=== PATIENT | female | born 1965 | race Caucasian/White ===

== ENCOUNTER 2020-09-15 08:31 | Day surgery (SDC) | payer BC ==
[2020-09-15 09:01] LABS: Absolute Lymphocytes (CBC) 1.7 K/uL (0.7-4.9); Basophils % 0.5 % (0-1.3); Hematocrit 38.5 % (36.0-45.0); Lymphocytes % 24.2 % (15.3-44.8); MPV 7.8 fL (7.6-11.3); RBC Red Blood Cell Count 4.87 M/uL (3.86-4.86)
[2020-09-15 09:03] LABS: BUN Blood Urea Nitrogen 16 mg/dL (7-18); Bicarbonate 28 mmol/L (21-32); Glucose Level 134 mg/dL (74-106); Potassium 4.4 mmol/L (3.5-5.1); Sodium Level 142 mmol/L (136-145)
[2020-09-15] MEDS ORDERED: CEFAZOLIN/SWI 2gm 0 GM/0 ML SYR ONE (09:07)
[2020-09-15] MEDS ORDERED: NA CHLORIDE 0.9% 1,000 ML ONE (09:07)
[2020-09-15] MEDS ORDERED: MINERAL OIL, LITE 10 ML VIAL ONE (09:39)
--- NOTE | 2020-09-15 10:00 | P.HP ---
Date of Service: 09/15/20 PC: This 55-year-old female presents for a split-thickness skin graft from the right thigh to the right anterior whitlock. HPC: This patient, who has cerebral palsy, inadvertently caked the mental foramen of [facility]'s beds. She removed if portion of skin measuring approximately 5 inches long by 3 inches across the base on her right anterior thigh. Was initially sutured however that failed and now she has an open wound in that area. PMH: Insulin-dependent Diabetes SOC: No known allergies, on insulin SYS REVIEW: Otherwise a rather healthy lady, no chronic medical issues apart from her diabetes O/E awake alert stable HEENT: Nonicteric Chest: Air entry equal bilaterally ABD: Negative LOCO: Open wound to the right anterior lower leg. Has clean granulation tissue in its base. DATA: NAD IMPRESSION: This patient has a open is slowly healing wound on the right anterior portion of her thigh. Her initial injury was about a month ago with still minimal nonhealing. [facility] been [facility]. We have got it so we have a good granulation base. At this point would be the prime time to apply a split-thickness skin graft. PLAN: I will take her the operating room for a split-thickness skin graft from the right thigh to the right anterior whitlock. The risks of this procedures have b een discussed. The possibility of bleeding, infection, the fact will now have 2 wounds were explained. She understands and wants to proceed.
[2020-09-15] MEDS ORDERED: CEFAZOLIN/SWI 1gm 1 GM/10 ML SYR ONE (10:02)
--- NOTE | 2020-09-15 11:04 | P.OP ---
Preoperative diagnosis: Wound to the right lower leg Postoperative diagnosis: The same Primary procedure: Split thickness skin graft from the right thigh to right anterior lower leg Secondary procedure: Application of wound VAC Anesthesia: General Estimated blood loss: Less than 10 cc Specimen: None sign Operative Technique: The patient brought the operating room and placed supine on the table. After the induction of adequate general endotracheal anesthesia, the area of the right lower leg was scrubbed with a chlorhexidine solution, then a Betadine solution, and her right lower leg was draped in usual aseptic manner. Attention was turned towards the right thigh. A split-thickness skin graft approximately 18,000 th of an inch was taken from the right upper thigh measuring approximately 2 inches x 3 in a 0.5 inches in size. The donor site was now dressed with a Xeroform gauze. The piece of skin was taken to the back table were was meshed at a ratio 1.5-1. This was then applied to the traumatic wound after ensuring that it was clean and debrided back to good viable granulation tissue. It was secured using interrupted chromic sutures around its edge. I piece of Adaptic was now placed over the graft itself. The wound VAC sponge was placed on top of this and after securing it with the usual transparent dressing, a hole was made it was collected to our dissection. We had a good seal at that time. At this point the needle sponge instrument count were correct. No specimens were sent. And the wound VAC as a drain was in position. She was stable when sent to the recovery room. Complications: None Transferred to: Recovery Room Condition: Good
[2020-09-15] MEDS: HYDROMORPHONE HCL 1 MG/ML INJ ONE ×2 (11:42→11:52)
[2020-09-15] MEDS ORDERED: HYDROMORPHONE HCL 1 MG/ML INJ ONE (12:20)
[2020-09-15 12:35] VITALS: BMI 38.5
--- NOTE | 2020-09-15 12:42 | P.CNS ---
Date of Consult: 09/15/20 Reason for Consult: Diabetes Management Requesting Physician: Marty Blevins Chief Complaint: RLE laceration History of Present Illness: 55yo F, PMH: IDDM2 with neuropathy, Cerebral Palsy, osteoarthritis, underwent RLE skin graft after recent laceration she incurred from her daughter's bedframe. Patient is seen in the PACU, reports feeling well. She denies any recent fever/chills/infection. She is eating lunch without difficulty. She states she took her 60units of insulin this morning. She also takes Farxiga as well. Her glucose this morning at home was 118, and postoperatively is 98. Bloodwork is otherwise unremarkable today. She reports her last HgA1c in July 2020 was 6.5 Allergies No Known Allergies Allergy (Verified 09/15/20 07:44) Home Medications: Dapagliflozin Propanediol [Farxiga] 1 tab PO DAILY 09/01/20 Progesterone, Micronized [Progesterone] 1 cap PO DAILY 09/01/20 Triamterene 25 mg PO DAILY 09/01/20 Insulin Degludec/Liraglutide [Xultophy 100 Unit-3.6 mg/ml] 60 units SQ DAILY 09/15/20 - Past Medical/Surgical History Diabetic: Yes -: Cerebral palsy -: DM -: Osteoarthritis -: Claustrophobia -: Neuropathy -: Hysterectomy -: Right leg reconstruction r/t cerebral palsy -: Right leg stimulator implanted -: Cholecystectomy -: Appendectomy - Social History Smoking Status: Never smoker Alcohol use: No Place of Residence: Home Review of Systems 10-point ROS is otherwise unremarkable Physical Examination Temp Pulse Resp BP Pulse Ox 96.6 F L 92 H 18 136/88 09/15/20 12:18 09/15/20 12:18 09/15/20 12:18 09/15/20 12:18 General: Alert, In no apparent distress, Oriented x3 HEENT: Mucous membr. moist/pink, Sclerae nonicteric Neck: Supple, JVD not distended Respiratory: Clear to auscultation bilaterally, Normal air movement Cardiovascular: No edema, Regular rate/rhythm Gastrointestinal: Soft and benign, Non-distended, No tenderness Musculoskeletal: Other (RLE: wound vac in place) Neurological: Normal speech, Normal affect, Other (diminished sensation mildly on b/l feet) Laboratory Data (last 24 hrs) 09/15/20 08:11: Sodium 142, Potassium 4.4, BUN 16, Creatinine 0.67, Glucose 134 H 09/15/20 08:11: WBC 7.00, Hgb 12.3, Hct 38.5, Plt Count 180 Physician Review Additional Text: Problem List RLE laceration, now s/p skin graft and wound vac placement DM2, insulin dependent with neuropathy Cerebral Palsy Anxiety -patient overall seems to be doing well post-operatively -took her full dose insulin this morning -will continue to monitor closely as patient was NPO this morning and at risk for hypoglycemia -check glucose in ~2hrs -blood glucose have been ok, tolerating lunch at this time -accucheks ACHS, low dose sliding scale insulin -can resume home regimen tomorrow -wound vac/pain control per surgery Time Spent Managing Pts care (In Minutes): 60
[2020-09-15] MEDS ORDERED: NA CHLORIDE 0.9% 1,000 ML IV SCH (13:00)
[2020-09-15] MEDS: Ringers Lactate 1,000 ML IV SCH ×2 (13:21→19:59)
[2020-09-15] MEDS: MORPHINE 4 MG/ML SYR IV PRN ×2 (14:40→19:55)
[2020-09-15] MEDS: INSULIN -REGULAR HUMAN 50 UNIT/0.5 ML ML SQ SCH ×2 (15:41→19:59)
[2020-09-16] MEDS: INSULIN -REGULAR HUMAN 50 UNIT/0.5 ML ML SQ SCH ×3 (07:30→16:27)
[2020-09-16] MEDS: Ringers Lactate 1,000 ML IV SCH ×2 (07:56→17:13)
[2020-09-16 08:20] VITALS: O2SAT 96
[2020-09-16] MEDS: MORPHINE 4 MG/ML SYR IV PRN ×2 (08:46→13:52)
[2020-09-16] MEDS ORDERED: XULTOPHY SQ SCH (09:00)
[2020-09-16 16:26] VITALS: BP 133/68; TEMP 98
--- NOTE | 2020-09-16 17:58 | P.PN ---
Subjective Date of Service: 09/16/20 Chief Complaint: RLE laceration Subjective: Other (doing well, tolerating diet, pain tolerable, no SOB, no chest pain, no n/v/d, passing flatus) Review of Systems 10-point ROS is otherwise unremarkable Physical Examination - Vital Signs Temperature: 98 F Blood Pressure: 133/68 Pulse: 89 Respirations: 18 Pulse Ox (%): 95 Assessment & Plan Physician Review Additional Text: Physical Exam General: Alert, In no apparent distress, Oriented x3 HEENT: Mucous membr. moist/pink, Sclerae nonicteric Neck: Supple, JVD not distended Respiratory: Clear to auscultation bilaterally, Normal air movement Cardiovascular: No edema, Regular rate/rhythm Gastrointestinal: Soft, slightly-distended, No tenderness Musculoskeletal: RLE: wound vac in place, R thigh: dressing intact over skin graft source Neurological: Normal speech, Normal affect, Other (diminished sensation mildly on b/l feet) Problem List RLE laceration, now s/p skin graft and wound vac placement DM2, insulin dependent with neuropathy Cerebral Palsy Anxiety -patient overall seems to be doing well post-operatively -continue home insulin, patient has in room -accucheks ACHS, low dose sliding scale insulin -wound vac/pain control per surgery Dispo: pending wound vac / home health set up Time Spent Managing Pts Care (In Minutes): 35
== END 2020-09-16 18:23 | disposition home health service (06) ==
LOC: OR 08:31 → 2ND 12:14 → OR 09-16 18:23
PROVIDERS: ATTEND Surgery
PROC: 0HBHXZZ Excision of Right Upper Leg Skin, External Approach (ICD-10-PCS; 2020-09-15)
PROC: 0HRKX74 Replacement of Right Lower Leg Skin with Autologous Tissue Substitute, Partial Thickness, External Approach (ICD-10-PCS; principal; 2020-09-15 09:30)
DX: S81.801A Unspecified open wound, right lower leg, initial encounter (principal); E11.40 Type 2 diabetes mellitus with diabetic neuropathy, unspecified; G80.9 Cerebral palsy, unspecified; M19.90 Unspecified osteoarthritis, unspecified site; F41.9 Anxiety disorder, unspecified; Z20.822 Contact with and (suspected) exposure to COVID-19
CPT/HCPCS: 85025; 80048; 36415; 82947 ×6; 94010 ×2; 15100; U0003; J1170 ×2; J0690; J7120 ×3; J7030